=== PATIENT | male | born 1930 | race Caucasian/White ===

== ENCOUNTER 2019-04-11 10:53 | Observation (INO) | payer MEDICARE, BC ==
[2019-04-11 11:20] LABS: #Eosinphils 0.2 thou/uL (0.0-0.7); #Monocytes 0.4 thou/uL (0.11-0.59); #Neutrophils 4.1 thou/uL (1.40-6.50); %Basophils 0.3 % (0.0-1.0); %Eosinophils 3.6 % (0.0-10.0); %Lymphocytes 17.8 % (21.0-51.0); %Monocytes 6.7 % (0.0-10.0); %Neutrophils 71.7 % (42.0-75.0); Hemoglobin 14.9 g/dL (14.0-18.0); Mean Corpuscular HGB CONC 34.7 g/dL (32.0-36.0); Mean Corpuscular Hemoglobin 30.5 pg (27.0-31.0); Mean Corpuscular Volume 87.7 fL (78.0-98.0); Mean Platelet Volume 7.4 fL (7.4-10.4); Platelet Count 185 thou/uL (130-400); RBC Distribution Width 12.3 % (11.5-14.5); Red Blood Cell (RBC) Count 4.88 mill/uL (4.70-6.10); White Blood Cell (WBC) Count 5.7 thou/uL (4.8-10.8)
--- NOTE | 2019-04-11 11:48 | RAD ---
EXAM: Chest PA and lateral: HISTORY: Pain. COMPARISON: 03/16/2007 FINDINGS: Heart: Normal cardiac silhouette Aorta: Unremarkable Pulmonary vessels: Normal Costophrenic angles: Costophrenic angles are clear. Lungs: No consolidation or masses. Pneumothorax: No pneumothorax Osseous structures: No osseous abnormalities IMPRESSION: No acute cardiopulmonary process.
[2019-04-11 11:51] LABS: ALT (SGPT) 12 U/L (8-55); AST (SGOT) 15 U/L (5-34); Albumin 3.8 g/dL (3.4-4.8); Alkaline Phosphatase 75 U/L (40-150); Anion Gap 12 mmol/L (10-20); BUN (Urea Nitrogen) 16 mg/dL (8.4-25.7); Bilirubin, Total 0.6 mg/dL (0.2-1.2); CK (CPK) 60 U/L (30-200); Calc. Creatinine Clearance 0 mL/min (70-130); Calcium 9.1 mg/dL (7.8-10.44); Carbon Dioxide 25 mmol/L (23-31); Chloride 106 mmol/L (98-107); Estimated GFR-MDRD 82; Globulin 2.3 g/dL (2.4-3.5); Glucose 102 mg/dL (83-110); Potassium 4.1 mmol/L (3.5-5.1); Protein, Total 6.1 g/dL (5.8-8.1); Sodium 139 mmol/L (136-145)
[2019-04-11 11:52] LABS: CKMB 1.3 ng/mL (0-6.6)
[2019-04-11] MEDS ORDERED: Acetaminophen 325 MG TAB PO PRN (14:37)
[2019-04-11 14:42] VITALS: BMI 24.6
[2019-04-11 16:01] LABS: Troponin I Less than 0.010 ng/mL (< 0.028)
[2019-04-11] MEDS ORDERED: Calcium Carbonate 500 MG ChewTAB PO PRN (16:37)
[2019-04-11] MEDS ORDERED: Ondansetron ODT 4 MG TAB PO PRN (16:37)
[2019-04-11 18:26] LABS: Troponin I 0.013 ng/mL (< 0.028)
--- NOTE | 2019-04-11 22:53 | HP ---
PRIMARY CARE PHYSICIAN: Dr. Liu at the [facility] and [facility] in [place]. CHIEF COMPLAINT: Generalized weakness and left shoulder pain. HISTORY OF PRESENT ILLNESS: Mr. Ireland is a pleasant 88-year-old male with no past medical history, who had presented to [facility] earlier today after he experienced generalized weakness, nausea with no vomiting and left shoulder pain for a few moments earlier this morning while getting ready for episcopal. He states that he had gone to the bathroom and when he was making his way back to the bedroom, he states that the symptoms started, he states that he had sat down in a chair and the symptoms slowly resolved. He states that this has never happened in the past, however this shoulder pain felt like a muscle spasm. He states after he had sat down, the generalized weakness and his pain resolved, however, the nausea did remain for several minutes after, however he has not thrown up at that time. He had denied any fever or chills. Denied any chest pain, shortness of breath, or abdominal pain. He was taken to the ER for further workup, which his EKG showed normal sinus rhythm with a rate of 67. Blood pressure and other vital signs remained stable. However, blood pressure did show some elevations in the 170s/80s. However, the patient remained asymptomatic at that time. He had undergone a chest x-ray which revealed no acute cardiopulmonary process. His labs remained unremarkable including a troponin of less than 0.010 x2. He had denied any cough or any further symptoms since this morning. It was determined at that time the patient to be brought in under observation and to be monitored overnight for his symptoms from this morning. REVIEW OF SYSTEMS: All other systems reviewed and found to be negative unless mentioned in the HPI. PAST MEDICAL HISTORY: None. PAST SURGICAL HISTORY: Back surgery, cholecystectomy, right shoulder and right elbow surgery. PSYCHIATRIC HISTORY: None. SOCIAL HISTORY: The patient denies any alcohol, tobacco, or illicit drug use. KNOWN ALLERGIES: No known drug allergies. CURRENT HOME MEDICATIONS: None. PHYSICAL EXAMINATION: VITAL SIGNS: Blood pressure 135/67, pulse 59, respirations 12, temperature 98.0 degrees Fahrenheit, O2 saturations 95% on room air. GENERAL: The patient is awake, alert, and oriented x3. He is currently sitting up in bed with his at bedside and he appears to be in no acute distress at this time. HEENT: Atraumatic, normocephalic. Pupils are round and reactive to light. Extraocular muscles intact. Moist mucous membranes noted. NECK: Soft. Supple. No JVD. Trachea midline. CARDIOVASCULAR: Positive S1 and S2. Regular rate and rhythm. No murmur auscultated. RESPIRATORY: Clear to auscultation bilaterally. No wheezes, rales, or rhonchi. ABDOMEN: Soft, nontender. Bowel sounds present. MUSCULOSKELETAL: Strength 5+ bilaterally in upper and lower extremities. Moves all extremities equal. Full range of motion in the left shoulder with no pain noted. No edema noted. NEUROLOGIC: Cranial nerves 2 through 12 grossly intact. No focal deficits noted. SKIN: Warm, dry, and intact. No rashes. No ulceration noted. PSYCHIATRIC: Good mood and affect. LABORATORY DATA: WBC 5.7, RBC 4.88, hemoglobin 14.9, platelets 185. Sodium 139, potassium 4.1, anion gap 12, BUN 16, creatinine 0.88, estimated GFR 82, glucose 102, CK-MB 1.3, troponin less than 0.010 x2. DIAGNOSTIC IMAGING: PA and lateral chest x-ray reveals no acute cardiopulmonary process. ASSESSMENT AND PLAN: 1. Based on the patient's history, he had likely suffered a possible presyncopal episode. Therefore, he will be placed on telemetry and observed overnight. He will be started on a baby aspirin daily. TSH and lipid panel will be checked. So far, labs are currently unremarkable and vital signs are stable. He states he takes no home medications at this time. Troponins negative x2, and we will await the 3rd. We will check an echocardiogram for thoroughness and we will leave it up to the morning team to order any further testing at that time. 2. Left shoulder pain. Per patient, he states that this was more like a muscle spasm. However, this had spontaneously resolved. Currently, the patient is asymptomatic at this time. He will be placed on Tylenol as needed for his pain and he will be monitored closely overnight. 3. Deep venous thrombosis and gastrointestinal prophylaxis. 4. Code status, DNAR. 5. Surrogate decision maker is the patient's , Pat. DISPOSITION: The patient will be monitored on telemetry under observation overnight. Troponins will be trended and an echocardiogram will be ordered, but he will likely be discharged home tomorrow. Job ID: [id number]
[2019-04-12 05:48] LABS: #Eosinphils 0.5 thou/uL (0.0-0.7); #Lymphocytes 1.5 thou/uL (1.20-3.40); #Monocytes 0.5 thou/uL (0.11-0.59); #Neutrophils 3.2 thou/uL (1.40-6.50); %Basophils 0.8 % (0.0-1.0); %Eosinophils 8.4 % (0.0-10.0); %Lymphocytes 26.1 % (21.0-51.0); %Monocytes 8.8 % (0.0-10.0); %Neutrophils 55.9 % (42.0-75.0); Hemoglobin 14.6 g/dL (14.0-18.0); Mean Corpuscular HGB CONC 32.5 g/dL (32.0-36.0); Mean Corpuscular Hemoglobin 28.9 pg (27.0-31.0); Mean Corpuscular Volume 88.7 fL (78.0-98.0); Mean Platelet Volume 7.4 fL (7.4-10.4); Platelet Count 181 thou/uL (130-400); RBC Distribution Width 12.4 % (11.5-14.5); Red Blood Cell (RBC) Count 5.05 mill/uL (4.70-6.10); White Blood Cell (WBC) Count 5.7 thou/uL (4.8-10.8)
[2019-04-12 06:11] LABS: Anion Gap 7 mmol/L (10-20); BUN (Urea Nitrogen) 13 mg/dL (8.4-25.7); Calc. Creatinine Clearance 62 mL/min (70-130); Calcium 8.9 mg/dL (7.8-10.44); Carbon Dioxide 29 mmol/L (23-31); Chloride 107 mmol/L (98-107); Estimated GFR-MDRD 84; Glucose 93 mg/dL (83-110); Sodium 139 mmol/L (136-145)
[2019-04-12] MEDS ORDERED: Aspirin 325 MG TAB PO SCH (09:00)
[2019-04-12 15:58] VITALS: BP 146/70; TEMP 98.3
--- NOTE | 2019-04-13 04:26 | DIS ---
DATE OF ADMISSION: 04/11/2019 DATE OF DISCHARGE: 04/12/2019 CHIEF COMPLAINT ON ADMISSION: 1. Left axilla and shoulder pain with associated generalized weakness. DISCHARGE DIAGNOSES: 1. Left axilla pain with associated nausea, acute coronary syndrome ruled out, questionably secondary to musculoskeletal/muscle spasm. 2. Borderline hypertension. BRIEF HOSPITAL COURSE: The patient is a very pleasant, 88-year-old male with no past medical history and who takes no home medications, who presented to the hospital after suffering from acute onset of what he describes as left shoulder pain, although points to his left axilla area. The pain came on while he was getting ready for quaker. It did not radiate. He had no chest pain or shortness of breath. He did have some associated nausea, which caused him to sit down. His symptoms resolved on their own. They were nonexertional. The patient's brought him to the hospital for further workup and treatment. He was admitted for ACS rule out. His serial troponin were negative x3. Chest x-ray was negative for any acute cardiopulmonary process. His blood work was largely remarkable. His echocardiogram showed normal left ventricular systolic function and grade 1 diastolic dysfunction. His symptoms have completely resolved. He has ambulated the halls with PT without any issue or recurrence of his pain. He has had no chest pain or shortness of breath. He has had no further nausea. CONDITION AT DISCHARGE: Stable. DISCHARGE DISPOSITION: Home. DISCHARGE INSTRUCTIONS/FOLLOW UP: The patient has been counseled on his blood pressure readings which are borderline at this time. He will obtain a blood pressure cuff and begin monitoring his blood pressure at home. He will follow up within the next week with his [facility] doctor, Dr. Jefferson in [place]. Apparently just under a year ago, the patient did have an extensive workup at the [facility], and the patient's does believe he had a stress test at that time. Repeat stress test may be deemed appropriate if the patient's symptoms return. There was no evidence that his pain was cardiac in nature at this time, and he will be discharged home in good condition. The care of this patient has been discussed with Dr. Aguillon who agrees with discharge as outlined above. Job ID: [id number] [facility]
== END 2019-04-12 17:31 | disposition home or self-care (01) ==
LOC: ERS 10:53 → 2SW 13:15
PROVIDERS: ADMIT Internal Medicine; ATTEND Internal Medicine
DX: M62.838 Other muscle spasm (principal); R03.0 Elevated blood-pressure reading, without diagnosis of hypertension; R11.0 Nausea; Z98.890 Other specified postprocedural states
CPT/HCPCS: 71046; 80048; 80053; 82550; 82553; 84484 ×2; 85025 ×2; 93005; 93306; 94760; 97139; 99285; G0378 ×2; 36415

== ENCOUNTER 2019-11-21 09:02 | Emergency (ER) | payer MEDICARE, BC ==
[2019-11-21] MEDS ORDERED: HYDROcodone/Acetaminophen 5/325 mg Tablet ONE (09:24)
--- NOTE | 2019-11-21 09:39 | RAD ---
Exam:2 views right hip HISTORY: Pain COMPARISON: None FINDINGS: Contour of the femoral head is maintained. Preserved hip joint space. No fracture. IMPRESSION: No fracture.
--- NOTE | 2019-11-21 10:44 | CT ---
CT PELVIS WITHOUT CONTRAST: HISTORY: Pain. Fall. COMPARISON: None. FINDINGS: Transversely oriented acetabular fracture extending to the anterior wall. The femoral head and neck a re intact. The obturator rings are intact. Chronic adductor enthesopathy. No SI joint widening. Small right pelvic sidewall hematoma. Moderate prostate calcifications. IMPRESSION: Nondisplaced, transversely oriented right acetabular fracture with small right pelvic sidewall hemato ma. Fracture does extend to the anterior wall. POS: OFF
== END 2019-11-21 11:31 | disposition home or self-care (01) ==
LOC: ERS 09:02
DX: S32.454A Nondisplaced transverse fracture of right acetabulum, initial encounter for closed fracture (principal); W19.XXXA Unspecified fall, initial encounter
CPT/HCPCS: 72192

== ENCOUNTER 2020-05-24 04:17 | Emergency (ER) | payer MEDICARE, BC ==
[2020-05-24] MEDS ORDERED: Ondansetron PF 4 MG/2 ML Vial ONE (05:47)
[2020-05-24] MEDS ORDERED: Morphine 4 MG/ML VIAL ONE (05:47)
--- NOTE | 2020-05-24 07:50 | RAD ---
EXAM: 2 views of the left shoulder HISTORY: Shoulder pain after fall COMPARISON: None FINDINGS: There is a questionable fracture of the greater tuberosity of the humerus. Moderate glenohu meral degenerative changes are seen.. The visualized thorax is unremarkable. IMPRESSION: Questionable greater tuberosity fracture of the humerus
--- NOTE | 2020-05-24 08:31 | CT ---
PRELIMINARY REPORT/[facility]/EMERGENCY AFTER HOURS PROCEDURE: EXAM: CT Head Without Intravenous Contrast. CLINICAL HISTORY: Pt is s/p fall this am. -LOC TECHNIQUE: Axial computed tomography images of the head/brain without intravenous contrast. COMPARISON: None provided. FINDINGS: BRAIN: There is cerebral atrophy. There is no intracranial hemorrhage. Periventricular hypodensities are pre sent secondary to small vessel ischemic disease. VENTRICLES: No hydrocephalus. ORBITS: The orbits are unremarkable. SINUSES AND MASTOIDS: The paranasal sinuses and mastoid air cells are clear. SOFT TISSUES: No significant facial or scalp soft tissue swelling evident. No radiopaque foreign body is seen. BONES: No acute skull fracture. IMPRESSION: No acute intracranial abnormality. ELECTRONICALLY SIGNED BY: Yolanda Butler MD May 24, 2020 5:07:13 AM CDT This report is intended for review by the ordering physician only, in accordance of law. If you recei ve this report in error, please call [facility] at [phone]. FINAL REPORT EMERGENCY AFTER HOURS CT BRAIN WITHOUT CONTRAST: FINDINGS/IMPRESSION: I agree with the findings and impression given in the preliminary report per [facility] physici an. No evidence of acute intracranial abnormality. POS: VALERIY
== END 2020-05-24 06:50 | disposition home or self-care (01) ==
LOC: ERS 04:17
DX: S42.202A Unspecified fracture of upper end of left humerus, initial encounter for closed fracture (principal); K21.9 Gastro-esophageal reflux disease without esophagitis; Z79.899 Other long term (current) drug therapy; W18.30XA Fall on same level, unspecified, initial encounter; Y92.002 Bathroom of unspecified non-institutional (private) residence as the place of occurrence of the external cause
CPT/HCPCS: 70450; 96374; 96375; J2270; J2405

== ENCOUNTER 2020-07-17 10:04 | Inpatient (IN) | payer MEDICARE, BC ==
--- NOTE | 2020-07-17 10:58 | RAD ---
XR Chest 1 View HISTORY: Preoperative evaluation, right hip fracture COMPARISON: 04/11/2019 FINDINGS: The heart size is normal. The lungs are well expanded without focal areas of consolidation, pneumothorax or pleural effusions. IMPRESSION: No radiographic evidence of acute cardiopulmonary process.
--- NOTE | 2020-07-17 11:01 | RAD ---
PELVIS 1 VIEW: HISTORY: Fall with hip pain. COMPARISON: None. FINDINGS: Obliquely oriented mid cervical femoral neck fracture with varus angulation and impaction. The obtur ator rings are intact. Left femoral head and neck are intact. IMPRESSION: Obliquely oriented right midcervical femoral neck fracture with varus angulation and impaction. POS: HOME
--- NOTE | 2020-07-17 11:01 | CT ---
CT BRAIN WITHOUT CONTRAST: HISTORY:Fall from ground level. Altered mental status COMPARISON:05/24/2020 FINDINGS: There are foci of decreased attenuation in the periventricular white matter, consistent with chronic small vessel ischemic disease. Changes of cortical atrophy are again seen. No evidence of acute infarct, hemorrhage, midline shift or abnormal extra-axial fluid collections is seen. The ventricular size is appropriate and the basilar cisterns are patent. The bony calvarium is intact. The visualized paranasal sinuses and mastoid air cells are well aerated. IMPRESSION: No CT evidence of acute intracranial process.
--- NOTE | 2020-07-17 11:02 | RAD ---
RIGHT FEMUR 2 VIEWS: HISTORY: Fracture. Pain. COMPARISON: None. FINDINGS: There is a right mid cervical obliquely oriented femoral neck fracture with mild varus angulation and impaction. The remainder of the femur is intact. Moderate degenerative changes of the medial cecilia rtment of the knee. IMPRESSION: Obliquely oriented midcervical femoral neck fracture. POS: HOME
--- NOTE | 2020-07-17 11:14 | CT ---
CT CERVICAL SPINE WITH CORONAL AND SAGITTAL REFORMATIONS AND NO IV CONTRAST: HISTORY: Fall, neck pain FINDINGS: Multilevel degenerative changes are present. No fracture, subluxation or facet malalignment is identified. No prevertebral soft tissue swelling is apparent. The visualized lung apices are unremarkable. IMPRESSION: No CT evidence for fracture or traumatic subluxation.
[2020-07-17 12:00] LABS: Mean Corpuscular HGB CONC 34.2 g/dL (32.0-36.0); Mean Corpuscular Hemoglobin 29.7 pg (27.0-31.0); Mean Corpuscular Volume 86.9 fL (78.0-98.0); Mean Platelet Volume 7.8 fL (7.4-10.4); Platelet Count 170 thou/uL (130-400); RBC Distribution Width 12.4 % (11.5-14.5); Red Blood Cell (RBC) Count 5.04 mill/uL (4.70-6.10); White Blood Cell (WBC) Count 8.3 thou/uL (4.8-10.8)
[2020-07-17 12:16] LABS: Eosinophils 1 % (0-10); Lymphocytes 11 % (21-51); MDiff Complete? YES; Monocytes 8 % (0-10); Neutrophil 79 % (42-75); Platelet Morphology Comment Appears Adequate; Reactive Lymphocytes 1 % (0-10)
[2020-07-17 12:19] LABS: ALT (SGPT) 12 U/L (8-55); AST (SGOT) 15 U/L (5-34); Albumin 3.8 g/dL (3.4-4.8); Alkaline Phosphatase 113 U/L (40-110); Anion Gap 15 mmol/L (10-20); BUN (Urea Nitrogen) 14 mg/dL (8.4-25.7); Bilirubin, Total 0.7 mg/dL (0.2-1.2); Calc. Creatinine Clearance 0 mL/min (70-130); Carbon Dioxide 23 mmol/L (23-31); Chloride 104 mmol/L (98-107); Estimated GFR-MDRD 74; Globulin 2.7 g/dL (2.4-3.5); Glucose 130 mg/dL (83-110); Potassium 3.9 mmol/L (3.5-5.1); Protein, Total 6.5 g/dL (5.8-8.1); Sodium 138 mmol/L (136-145)
[2020-07-17] MEDS ORDERED: Morphine 2 MG/ML VIAL SLOW IVP PRN (14:27)
[2020-07-17] MEDS ORDERED: Ondansetron ODT 4 MG TAB PO PRN (14:27)
[2020-07-17] MEDS ORDERED: Ondansetron PF 4 MG/2 ML Vial IVP PRN (14:27)
[2020-07-17] MEDS ORDERED: Dextrose 5% in Water 1,000 ML IV PRN (14:27)
[2020-07-17] MEDS ORDERED: Dextrose 50% Abboject 50 ML SYRINGE SLOW IVP PRN (14:27)
[2020-07-17] MEDS ORDERED: hydrALAZINE 20 MG/ML VIAL SLOW IVP PRN (14:27)
[2020-07-17] MEDS ORDERED: traMADol HCl 50 MG TAB PO PRN (14:32)
[2020-07-17] MEDS ORDERED: Cyclobenzaprine 10 MG TAB PO PRN (14:32)
[2020-07-17 14:41] LABS: Magnesium 1.9 mg/dL (1.6-2.6); Phosphorus 3.1 mg/dL (2.3-4.7)
[2020-07-17 14:46] LABS: SARS-CoV-2 NAA Rapid Test Not Detected (NotDetected)
[2020-07-17] MEDS ORDERED: TETANUS AND DIPHTHERIA TOX/PF 0.5 ML DISP.SYRIN IM ONE (15:00)
--- NOTE | 2020-07-17 15:28 | HP ---
ATTENDING PHYSICIAN: Dr. Méndez. REQUESTING PHYSICIAN: Dr. Felton, the ER physician. CONSULTS: Orthopedic Surgery, Dr. Ray. CHIEF COMPLAINT: Ground level fall, right hip, and knee pain. HISTORY OF PRESENT ILLNESS: This is an 89-year-old gentleman with no significant past medical history, who presented to the emergency room after a ground level fall at his home. The patient was helping his put lotion on when he lost his balance, landing on his right side. The patient denies losing consciousness or hitting his head. The patient does have an abrasion to the right chin area. The patient is hard of hearing. The patient denies having any chest pain, shortness of breath, or dizziness before losing his balance. The patient does report he loses his balance frequently. The patient does use a cane to ambulate. The patient was found to have a right femoral neck fracture and Trauma Services was asked to admit the patient for medical management. The patient was given 225 mcg of fentanyl by EMS prior to arrival. REVIEW OF SYSTEMS: A 10-point review of systems is negative unless otherwise indicated in the above HPI. PAST MEDICAL HISTORY: Denies. PAST SURGICAL HISTORY: Back surgery, cholecystectomy, right shoulder, and right elbow surgery. ALLERGIES: NO KNOWN DRUG ALLERGIES. MEDICATIONS: Tylenol before bed. SOCIAL HISTORY: Denies smoking history. Occasional alcohol use. No illicit drug use. PHYSICAL EXAMINATION: VITAL SIGNS: Blood pressure 181/91, pulse 94, respirations 18, SpO2 of 100% on room air, temperature 97.6. GENERAL: Awake, alert, hard of hearing, oriented to person and place only. Moderate distress due to right hip pain. HEENT: Head is normocephalic, abrasion to right chin. Pupils are equal, round, and reactive. Mucous membranes are slightly dry. Trachea is midline, normal range of motion of neck, no cervical spine tenderness. CARDIOVASCULAR: Regular rate, regular rhythm, no murmur. RESPIRATORY: Clear bilateral, no wheezing, rales, or rhonchi. ABDOMEN: Soft, nontender, nondistended. EXTREMITIES: Moves all extremities. Strength 5/5, neurovascularly intact x4. Right lower extremity is externally rotated. Right hip tender to palpation. NEUROLOGIC: No focal deficits. SKIN: Warm, dry, and intact. LABORATORY DATA: WBC 8.3, RBC 5.04, hemoglobin 15.0, hematocrit 43.8, platelets 170. Sodium 138, potassium 3.9, chloride 104, carbon dioxide 23, BUN 14, creatinine 0.96, estimated GFR 74, glucose 130, calcium 9.0, phosphorus 3.1, magnesium 1.9. AST 15, ALT 12, alkaline phos 113, albumin 3.8. DIAGNOSTICS: Chest x-ray, impression, no evidence of acute cardiopulmonary process. Pelvis x-ray, impression, obliquely oriented right mid cervical femoral neck fracture with varus angulation and impaction. Brain CT, impression, no evidence of acute intracranial process. Cervical spine CT, impression, no evidence of fracture or traumatic subluxation. Right femur x-ray, impression, obliquely oriented mid cervical femoral neck fracture. IMPRESSION: 1. Ground level fall. 2. Right femoral neck fracture. 3. Acute traumatic pain. PLAN: Admit to the surgical floor. N.p.o. after midnight. Orthopedic Surgery plans to take the patient to the OR in the morning for repair. Maintenance fluids overnight, normal saline at 120 an hour. The patient can have regular diet before midnight. We will confirm the patient's home medications. Pain control. Bedrest until repair. Physical and Occupational Therapy to evaluate and treat postop. The patient will most likely need inpatient rehab postop. The plan will be discussed with the attending after this dictation. Job ID: [id number]
[2020-07-17 17:21] VITALS: BMI 22.9
[2020-07-17] MEDS: traMADol HCl 50 MG TAB PO SCH ×2 (18:21→20:10)
[2020-07-17] MEDS: Acetaminophen 500 MG TAB PO SCH ×2 (18:21→20:11)
[2020-07-17] MEDS: Ketorolac Tromethamine 30 MG/ML VIAL IVP SCH ×2 (18:22→23:26)
[2020-07-17] MEDS: Famotidine 20 MG TAB PO SCH (20:10)
[2020-07-17] MEDS: Sodium Chloride 0.9% 1,000 ML IV SCH (20:12)
[2020-07-18] MEDS: Acetaminophen 500 MG TAB PO SCH ×4 (04:22→20:39)
[2020-07-18] MEDS: traMADol HCl 50 MG TAB PO SCH ×4 (04:22→20:38)
[2020-07-18] MEDS: Sodium Chloride 0.9% 1,000 ML IV SCH ×3 (04:44→18:05)
[2020-07-18] MEDS: Ketorolac Tromethamine 30 MG/ML VIAL IVP SCH ×4 (04:45→23:19)
[2020-07-18 05:17] LABS: Hemoglobin 13.5 g/dL (14.0-18.0); Mean Corpuscular HGB CONC 33.6 g/dL (32.0-36.0); Mean Corpuscular Hemoglobin 29.1 pg (27.0-31.0); Mean Corpuscular Volume 86.7 fL (78.0-98.0); Mean Platelet Volume 7.8 fL (7.4-10.4); Platelet Count 166 thou/uL (130-400); RBC Distribution Width 12.5 % (11.5-14.5); Red Blood Cell (RBC) Count 4.62 mill/uL (4.70-6.10); White Blood Cell (WBC) Count 6.3 thou/uL (4.8-10.8)
[2020-07-18 05:43] LABS: Anion Gap 12 mmol/L (10-20); BUN (Urea Nitrogen) 17 mg/dL (8.4-25.7); Calc. Creatinine Clearance 62 mL/min (70-130); Calcium 8.5 mg/dL (7.8-10.44); Carbon Dioxide 24 mmol/L (23-31); Chloride 105 mmol/L (98-107); Estimated GFR-MDRD 86; Glucose 97 mg/dL (83-110); Magnesium 1.9 mg/dL (1.6-2.6); Potassium 3.5 mmol/L (3.5-5.1); Sodium 137 mmol/L (136-145)
[2020-07-18 05:44] LABS: Phosphorus 2.8 mg/dL (2.3-4.7)
[2020-07-18] MEDS ORDERED: Potassium Phosphate 30 MMOL, Magnesium Sulfate 2 GM in Sodium Chloride 0.9% 250 ML 250 ML IVPB SCH (08:30)
--- NOTE | 2020-07-18 08:33 | CON ---
DATE OF CONSULTATION: 07/17/2020 HISTORY OF PRESENT ILLNESS: Mr. Ireland is a pleasant 89-year-old male, status post ground level fall sustaining right hip fracture. The patient is resting comfortably in bed. The patient's , Jayde, had discussion on the phone. The patient's medical condition is otherwise comfortable, pain controlled. PAST MEDICAL HISTORY: Reflux, BPH, and bilateral lower extremity swelling. PAST SURGICAL HISTORY: Right shoulder and elbow surgery, a back surgery unspecified, history of two lumbar spine surgeries NOS cholecystectomy. MEDICATIONS: 1. Lasix. 2. Pantoprazole. 3. Tamsulosin. ALLERGIES: NO KNOWN DRUG ALLERGIES. SOCIAL HISTORY: The patient has history of smokeless tobacco use. No history of smoking. Denies alcohol use. Sabianist. 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 REVIEW OF SYSTEMS: Negative for 10-point except as above and positive for hearing loss. PHYSICAL EXAMINATION: GENERAL: Alert and oriented male, in no acute distress, resting comfortably in bed. EXTREMITIES: Right lower extremity, externally rotated and shortened. Neurovascularly intact distally. Palpable pulses. He will plantarflex and dorsiflex his toes. LABORATORY DATA: H and H of 15 and 43. Creatinine 0.96. The patient's glucose is 130. Otherwise, right femur and pelvis x-ray show a vertical shear basicervical femoral neck fracture, which exits near the patient's lesser trochanter. IMPRESSION: Right basicervical femoral neck fracture. ASSESSMENT AND PLAN: The patient will be made n.p.o. at midnight, be admitted to Trauma. The patient will be on-call to the OR tomorrow. Plan will be for a cemented hemiarthroplasty. I feel the vertical nature of his neck fracture either a valgus high angle DHS could be performed versus hemiarthroplasty. I feel like hemiarthroplasty has more consistency. I am concerned about his ability to heal at the angle and position of this and likely may fail. The patient made n.p.o., received preoperative antibiotics. I discussed with the patient and his the risks and benefits of surgery, pain, scar, bleeding, infection, damage to vital structures, decreased range of motion, strength, fracture below the stem, blood clots, loss of life or limb. The patient and family understand the risks. I discussed with his the mortality associated with this fracture. The patient understands this and elects to proceed. The patient will be taken to the operative suite tomorrow. Job ID: [id number] MTDD
[2020-07-18] MEDS ORDERED: Lidocaine 1% PF 5 ML VIAL ONE (09:00)
[2020-07-18] MEDS ORDERED: Glycopyrrolate 0.2 MG/ML 5 ML SYRINGE ONE (09:00)
[2020-07-18] MEDS ORDERED: PROPOFOL 200 MG/20 ML VIAL ONE (09:00)
[2020-07-18] MEDS ORDERED: PHENYLEPHRINE-NS 100 MCG/ML 10 ML SYRINGE ONE (09:00)
[2020-07-18] MEDS ORDERED: Ondansetron PF 4 MG/2 ML Vial ONE (09:00)
[2020-07-18] MEDS ORDERED: Rocuronium Bromide 10 MG/ML (10ML VIAL) ONE (09:00)
--- NOTE | 2020-07-18 09:10 | RAD ---
EXAM: 2 views of the right hip HISTORY: Right hip fracture COMPARISON: Pelvic x-ray 07/17/2020 FINDINGS: 2 views of the right hip shows a fracture of the right femoral neck. No dislocation of the femoral head is seen. No significant degenerative changes are seen. No soft tissue swelling is present. IMPRESSION: Right femoral neck fracture
[2020-07-18] MEDS ORDERED: Fentanyl 100 MCG/2 ML VIAL ONE (11:16)
[2020-07-18] MEDS ORDERED: Lidocaine 2% Jelly 5 ML TUBE ONE (11:17)
[2020-07-18] MEDS ORDERED: Phenylephrine 10 MG/ML VIAL ONE (11:17)
[2020-07-18] MEDS ORDERED: CEFAZOLIN 2 GM in Premix Bag 1 BAG IVPB SCH (11:30)
[2020-07-18] MEDS: Polyethylene Glycol 3350 17 GM Packet PO SCH (11:41)
[2020-07-18] MEDS: Famotidine 20 MG TAB PO SCH (11:41)
[2020-07-18] MEDS: Tamsulosin HCl 0.4 MG CAP PO SCH (11:42)
[2020-07-18] MEDS ORDERED: Tranexamic Acid 1,000 MG/10 ML VIAL ONE (12:03)
[2020-07-18] MEDS ORDERED: Sodium Chloride 0.9% 100 ML ONE (12:03)
--- NOTE | 2020-07-18 12:46 | PRG ---
DATE OF SERVICE: 07/18/2020 SUBJECTIVE: The patient remains on the surgical floor. The patient is status post right femoral neck fracture on 07/17/2020. The patient is scheduled to go to the operating room later this morning with Orthopedic Surgery for anticipated ORIF repair of the fracture. The patient is currently resting comfortably with good pain control. The patient has been n.p.o. since midnight in preparation for surgery. The patient will have Physical and Occupational Therapy planned to come postoperatively for evaluation. The patient voices no complaints at this time. OBJECTIVE: VITAL SIGNS: Temperature 97.9 Fahrenheit, pulse 75, respirations 18, SpO2 of 92% on room air, and blood pressure 156/75. GENERAL: A well-appearing male, resting comfortably, oriented to person and place only. HEENT: Head, normocephalic, abrasion to right chin. EOMI. Moist mucous membranes. CARDIOVASCULAR: Regular rate, regular rhythm. RESPIRATORY: Even respirations, nonlabored, no respiratory distress. Clear breath sounds bilaterally. ABDOMEN: Soft, nontender, and nondistended. EXTREMITIES: Moves all extremities, neurovascularly intact. Right lower extremity is externally rotated. Right hip is tender to palpation. NEUROLOGIC: No focal deficits. GCS 15. SKIN: Warm, dry, and intact. LABORATORY DATA: WBC 6.3, RBC 4.62, hemoglobin 13.5, hematocrit 40.1, and platelets 166. Sodium 137, potassium 3.5, chloride 105, carbon dioxide 24, BUN 17, creatinine 0.84, estimated GFR 86, glucose 97, and calcium 8.5. Phosphorus 2.8. Magnesium 1.9. DIAGNOSTIC STUDIES: Hip x-ray this morning shows a fracture of the right femoral neck. No dislocation of the femoral head is seen. No significant degenerative changes are seen. No soft tissue swelling is present. ASSESSMENT: 1. Status post ground-level fall. 2. Right femoral neck fracture. 3. Acute traumatic pain, well controlled. PLAN: Orthopedic Surgery plans to take the patient to the OR this morning for repair of right femoral neck fracture. Continue maintenance fluids of normal saline at 120 an hour. The patient can have regular diet postoperatively. Continue pain control. Physical and Occupational Therapy to evaluate and treat the patient postoperatively, anticipate the patient will likely need inpatient rehab placement. This patient was seen and evaluated by Dr. Clay with plan above discussed. Job ID: [id number]
[2020-07-18] MEDS ORDERED: Ondansetron HCl/PF 4 MG/2 ML Vial IVP PRN (14:29)
--- NOTE | 2020-07-18 15:05 | RAD ---
Right hip one view HISTORY: Fracture. FINDINGS: Metallic prosthesis in place. No eufemia-hardware lucency on this single view. Soft tissue gas from recent surgery. IMPRESSION : Right hip prosthesis radiographic position.
--- NOTE | 2020-07-18 15:11 | RAD ---
AP PELVIS: Date: 07/18/2020 HISTORY: Right femoral neck fracture. FINDINGS/IMPRESSION: Interval placement of a right femoral head prosthesis is seen in good position and alignment since th e previous day's exam. POS: OFF
--- NOTE | 2020-07-18 16:15 | EKG ---
Test Reason : Blood Pressure : / mmHG Vent. Rate : 072 BPM Atrial Rate : 072 BPM P-R Int : 140 ms QRS Dur : 098 ms QT Int : 404 ms P-R-T Axes : 024 -30 069 degrees QTc Int : 442 ms Sinus rhythm with occasional Premature ventricular complexes Left axis deviation Abnormal ECG Confirmed by ASHIA JACOME ([id number]), editor book JUAN WETZEL ([id number]) on 07/18/2020 4:14:36 PM Referred By: Confirmed By:ASHIA JACOME
[2020-07-18] MEDS: CEFAZOLIN 2 GM in Premix Bag 1 BAG IVPB SCH (20:38)
[2020-07-19] MEDS: CEFAZOLIN 2 GM in Premix Bag 1 BAG IVPB SCH (03:15)
[2020-07-19] MEDS: Acetaminophen 500 MG TAB PO SCH ×4 (03:16→20:16)
[2020-07-19] MEDS: traMADol HCl 50 MG TAB PO SCH ×4 (03:16→20:16)
[2020-07-19] MEDS: Ketorolac Tromethamine 30 MG/ML VIAL IVP SCH (05:07)
[2020-07-19 05:13] LABS: Mean Corpuscular HGB CONC 32.5 g/dL (32.0-36.0); Mean Corpuscular Hemoglobin 28.8 pg (27.0-31.0); Mean Corpuscular Volume 88.6 fL (78.0-98.0); Mean Platelet Volume 7.7 fL (7.4-10.4); Platelet Count 153 thou/uL (130-400); RBC Distribution Width 12.5 % (11.5-14.5); Red Blood Cell (RBC) Count 4.52 mill/uL (4.70-6.10); White Blood Cell (WBC) Count 7.8 thou/uL (4.8-10.8)
[2020-07-19 05:37] LABS: Anion Gap 13 mmol/L (10-20); BUN (Urea Nitrogen) 17 mg/dL (8.4-25.7); Calc. Creatinine Clearance 56 mL/min (70-130); Calcium 8.3 mg/dL (7.8-10.44); Carbon Dioxide 21 mmol/L (23-31); Chloride 106 mmol/L (98-107); Estimated GFR-MDRD 77; Glucose 130 mg/dL (83-110); Phosphorus 2.6 mg/dL (2.3-4.7); Sodium 136 mmol/L (136-145)
--- NOTE | 2020-07-19 07:21 | PRG ---
DATE OF SERVICE: 07/18/2020 SUBJECTIVE: The patient was seen this evening during rounds. He is postoperative day 0 after fixation of right femoral neck fracture. Upon my evaluation, he is resting comfortably in bed and asleep. No signs of acute distress. Nursing reported no acute events. OBJECTIVE: VITAL SIGNS: Temperature 98.7, pulse 92, respirations 16, oxygen saturation 93% on room air, and blood pressure 114/67. GENERAL: Well-appearing elderly male, sitting up in bed, asleep with no signs of acute distress. PULMONARY: Equal chest rise and fall. No signs of acute respiratory distress. ASSESSMENT: 1. Status post ground level fall. 2. Right femoral neck fracture, status post repair. 3. History of benign prostatic hyperplasia and gastroesophageal reflux disease. PLAN: Continue current regular diet. Discontinue IV fluids. Continue Dominguez for now, we will likely discontinue tomorrow. The patient to start working with Physical and Occupational Therapy tomorrow. Restarted his home Flomax and Protonix. We will hold off on Lasix for now. Repeat blood work in the morning. The patient will likely need placement at acute rehab facility. We will start that process tomorrow. Job ID: [id number]
[2020-07-19] MEDS ORDERED: Ibuprofen 600 MG TAB PO PRN (07:28)
[2020-07-19] MEDS ORDERED: Tamsulosin HCl 0.4 MG CAP PO SCH (09:00)
[2020-07-19] MEDS: Furosemide 40 MG TAB PO SCH (09:03)
[2020-07-19] MEDS: Tamsulosin HCl 0.4 MG CAP PO SCH (09:03)
[2020-07-19] MEDS: Aspirin 81 mg Enteric Coated Tablet PO SCH ×2 (09:03→20:16)
[2020-07-19] MEDS: Polyethylene Glycol 3350 17 GM Packet PO SCH (09:04)
--- NOTE | 2020-07-19 10:31 | OP ---
DATE OF PROCEDURE: 07/18/2020 PREOPERATIVE DIAGNOSIS: Right femoral neck fracture with posterior fracture line extending into calcar. POSTOPERATIVE DIAGNOSIS: Right hip complex femoral neck fracture with posterior wall of calcar fracture plane. PROCEDURE PERFORMED: Right hip hemiarthroplasty. DATE PITTER: Joo Forrest PA-C ANESTHESIOLOGIST: Hubert Hernandez MD ANESTHESIA: The patient received a general endotracheal intubation. ESTIMATED BLOOD LOSS: 100 mL. TOURNIQUET TIME: None. IMPLANTS: [place] size 5 Accolade C stem, a 12 mm distal spacer, 50 mm bipolar component, 28 mm -4 femoral head, and Simplex cement. ANTIBIOTICS: Ancef 2g TXA 1 g. COMPLICATIONS: None. HISTORY OF PRESENT ILLNESS: Mr. Ireland is an 89-year-old male, status post fall , a household ambulator. The patient presents with a right femoral neck fracture with a vertical shear component, split on the posterior wall. I discussed with the family risks and benefits of right cemented hemiarthroplasty to include pain, scar, bleeding, infection, damage to vital structures, need for further surgeries, failure of procedure, fracture below the stem, decreased range of motion and strength, loss of life or limb. The patient and family understand the risks and benefits of procedure and elected to proceed. DESCRIPTION OF PROCEDURE: A time-out was performed designating the patient's right lower extremity as the operative site based on site, consents, and marking. After time-out, the patient's right lower extremity was prepped and draped in a sterile fashion, placed in lateral position. After completion of time-out and receiving preoperative antibiotics, the patient had a lateral incision down through skin and IT band. Gluteus medius was taken down and minimus. The capsule was exposed, T' d the capsule, placing sutures and tied on anterior and posterior we made a napkin ring cut. The anterior aspect of the calcar was intact down to the lesser. At the level of the lesser, there was a posterior porus component of the calcar broken off down to the level of the lesser. I removed the head, sized to a 50. We then started broaching and broached up to a size 5, which we felt had a good fit and fill. We were at least 2 cortical diameters distal to our fracture line. We trialed #5, which was reduced and had overall good length with -4 head. We then washed out the cement, placed our cement plug, placed our cement down, and packed and rolled and placed into the canal. We passed our stem down, removed excess cement anterior and posterior. We used anterior calcar for our version as well as to rest the sleeve on, collar on. After removing all the implants, being happy with the position of the hip, we placed our final implants, reduced after we washed out the cup, reduced, closed the capsule, closed the medius and minimus with #2 Vicryl, closed with 2-0 Vicryl for the IT band, 0 and 2-0 for the skin and glue. My senior administrative assistant helped with retraction of the femur as well as closure of the wound and throughout the case with exposure of the patient's femur. The patient will be admitted postop, will be followed by Trauma, receive perioperative antibiotics, and will need long-term placement. Job ID: [id number] MTDD
[2020-07-19] MEDS ORDERED: Ibuprofen 600 MG TAB PO SCH (10:45)
--- NOTE | 2020-07-19 11:44 | PRG ---
DATE OF SERVICE: 07/18/2020 SUBJECTIVE: The patient remains on the surgical floor. The patient is status post right femoral neck fracture on July 17, 2020, and postoperative day #1 after ORIF repair of the right hip. The patient is currently working with physical therapy at bedside this morning. He reports that his pain in the right hip is a 10/10. The patient has been receiving scheduled tramadol for pain with some additional p.r.n. medications including Tylenol and Motrin; however, these have not been given as of yet. The patient's is at bedside, reports that the patient was very agitated overnight, continued to try to pull out his Dominguez catheter. OBJECTIVE: VITAL SIGNS: Temperature 98.0 Fahrenheit, pulse 67, respirations 16, SpO2 of 99% on room air, and blood pressure 154/64. GENERAL: Well-appearing male, standing at bedside, oriented to person and place, no acute distress. HEENT: Head is normocephalic, abrasion to right chin. EOMI. Moist mucous membranes. CARDIOVASCULAR: Regular rate, regular rhythm. RESPIRATORY: Even respirations, nonlabored, no respiratory distress. ABDOMEN: Soft, nontender, and nondistended. EXTREMITIES: Moves all extremities, neurovascularly intact. Right hip is tender to palpation. NEUROLOGIC: No focal deficits. GCS 15. SKIN: Warm, dry, and intact. LABORATORY DATA: Urine culture negative at 48 hours. WBC 7.8, RBC 4.52, hemoglobin 13.0, hematocrit 40.0, platelets 153. Sodium 136, potassium 4.0, chloride 106, carbon dioxide 21, BUN 17, creatinine 0.93, estimated GFR of 77, glucose 130, calcium 8.3, phosphorus 2.6, magnesium 2.0. DIAGNOSTIC STUDIES: Hip and pelvis x-ray demonstrates interval placement of a right femoral head prosthesis in good position and alignment. ASSESSMENT: 1. Status post ground level fall. 2. Right femoral neck fracture, status post repair, postoperative day #1. 3. Acute traumatic pain, poor control. 4. History of benign prostatic hyperplasia, gastroesophageal reflux disease. PLAN: Continue current regular diet. Adjust pain control to have tramadol scheduled, Motrin scheduled, and Tylenol scheduled. Continue to encourage the patient to work with Physical and Occupational Therapy. Home medications of Flomax and Protonix restarted. Continue to hold Lasix for now. Post-acute screen placed with anticipation that the patient will need placement at a rehab facility. Wound care consult placed today for sacral decubitus wound. Dominguez catheter discontinued. This patient was seen and evaluated by Dr. Clay with plan above discussed. Job ID: [id number]
[2020-07-19] MEDS: Ibuprofen 200 MG TAB PO SCH ×2 (11:59→18:40)
--- NOTE | 2020-07-19 12:45 | PDOC.GSPN ---
Surgery Progress Note: Subj - Subjective Patient reports: still having pain Narrative: Patient is an 89 year old male status post ground level fall resulting in right femoral neck fracture. Patient is status post-op day 1 after right hip hemiarthroplasty. Patient was visited on morning rounds. No reported overnight events. Patient did not appear in distress. Patient was working with PT upon arrival and tolerating therapy. When asked about pain, patient rated his pain 10 /10 in the right hip while on pain control with Tylenol 1000 mg PO ISRAEL and Tramadol 60 mg PO Q6H ISRAEL PRN. History of sacral pressure ulcer, which was evaluated at bedside. Patient was hemodynamically stable and appeared to have a positive disposition, despite pain. Surgery Progress Note: Obj - Vital signs Vital signs: Vital Signs - Most Recent Temp Pulse Resp BP Pulse Ox 97.3 F L 73 16 123/64 93 L 07/19/20 11:03 07/19/20 11:03 07/19/20 11:03 07/19/20 11:03 07/19/20 11:03 - Physical Exam General: no distress, severe pain (Patient reported 10/10 pain in right hip.) ENT: other (Moderate hearing loss) Cardiovascular: regular rate and rhythm Respiratory: normal expansion, normal respiratory effort Psychiatric: oriented to time, oriented to person, oriented to place, speech is normal Wound: healing well Additional exam: Sacral pressure ulcer evaluated at bedside. Surgery Progress Note: Results - Labs Result Diagrams: 07/19/20 04:51 07/19/20 04:51 Lab results: Laboratory Results - last 24 hr 07/19/20 07/19/20 04:51 04:51 WBC 7.8 RBC 4.52 L Hgb 13.0 L Hct 40.0 L MCV 88.6 MCH 28.8 MCHC 32.5 RDW 12.5 Plt Count 153 MPV 7.7 Sodium 136 Potassium 4.0 Chloride 106 Carbon Dioxide 21 L Anion Gap 13 BUN 17 Creatinine 0.93 Estimated GFR (MDRD) 77 Glucose 130 H Calcium 8.3 Phosphorus 2.6 Magnesium 2.0 Surgery Progress Note: A/P - Plan Plan: ASSESSMENT: 1. Status post ground level fall day 2 2. Status post-op right hip hemiarthroplasty day 1 3. Sacral decubitis ulcer 4. Benign prostatic hyperplasia 5. GERD PLAN: Continue with current diet regimen. Pain medication adjusted with Tylenol 1000 mg PO Q6H, Motrin 400 mg PO Q8H, and Tramadol 50 mg PO Q6H to ensure adequate pain control. Home medications including Furosemide, Tamsulosin, Protorix restarted. Wound care consulted for sacral wound. Encourage patient to continue working with PT. Dominguez catheter discontinued. Discuss with case management regarding acute rehab facility placement. Note recorded by SHERMAN Nazario-IVETTE, [facility].
[2020-07-19] MEDS ORDERED: Bisacodyl 10 MG SUPP PR SCH (23:15)
--- NOTE | 2020-07-19 23:45 | PRG ---
DATE OF SERVICE: SUBJECTIVE: Patient was seen this evening during rounds. He was resting comfortably in bed, asleep with no signs of acute distress. Nursing reported patient with Dominguez discontinued. He is not able to void since. We will continue to monitor with bladder scans and watch for his first void. OBJECTIVE: VITAL SIGNS: Temperature 98.1, pulse 78, respirations 16, oxygen saturation 98% on room air, and blood pressure 154/67. GENERAL: Well-appearing elderly male, lying in bed, resting comfortably and asleep with no signs of acute distress. PULMONARY: Equal chest rise and fall. No signs of acute respiratory distress. ASSESSMENT: 1. Status post ground level fall. 2. Right femoral neck fracture, status post repair. 3. Sacral decubitus ulcer, present on admission. 4. History of BPH and gastroesophageal reflux disease. PLAN: Continue current diet and pain regimen, suppository for bowel movement. To help with urinary retention, I and O cath as needed overnight. Patient is pending discharge to [facility] bed. He is ready for discharge at this time. Job ID: [id number]
[2020-07-20] MEDS: Ibuprofen 200 MG TAB PO SCH ×2 (02:16→10:02)
[2020-07-20] MEDS: Acetaminophen 500 MG TAB PO SCH ×3 (02:17→15:13)
[2020-07-20] MEDS: traMADol HCl 50 MG TAB PO SCH ×3 (02:18→15:13)
[2020-07-20 06:39] LABS: Hemoglobin 12.1 g/dL (14.0-18.0); Mean Corpuscular HGB CONC 32.9 g/dL (32.0-36.0); Mean Corpuscular Hemoglobin 28.7 pg (27.0-31.0); Mean Corpuscular Volume 87.1 fL (78.0-98.0); Mean Platelet Volume 8.1 fL (7.4-10.4); Platelet Count 154 thou/uL (130-400); RBC Distribution Width 12.5 % (11.5-14.5); Red Blood Cell (RBC) Count 4.23 mill/uL (4.70-6.10); White Blood Cell (WBC) Count 6.6 thou/uL (4.8-10.8)
[2020-07-20 07:02] LABS: Anion Gap 12 mmol/L (10-20); BUN (Urea Nitrogen) 19 mg/dL (8.4-25.7); Calc. Creatinine Clearance 62 mL/min (70-130); Calcium 8.1 mg/dL (7.8-10.44); Carbon Dioxide 23 mmol/L (23-31); Chloride 107 mmol/L (98-107); Estimated GFR-MDRD 86; Glucose 116 mg/dL (83-110); Magnesium 1.8 mg/dL (1.6-2.6); Phosphorus 2.2 mg/dL (2.3-4.7); Potassium 3.7 mmol/L (3.5-5.1); Sodium 138 mmol/L (136-145)
[2020-07-20] MEDS ORDERED: Magnesium Sulfate 2 GM in Sodium Chloride 0.9% 100 ML IVPB SCH (08:00)
[2020-07-20] MEDS ORDERED: Potassium Phosphate 30 MMOL, Magnesium Sulfate 2 GM in Sodium Chloride 0.9% 250 ML 250 ML IVPB SCH (08:00)
[2020-07-20] MEDS: Aspirin 81 mg Enteric Coated Tablet PO SCH (10:01)
[2020-07-20] MEDS: Furosemide 40 MG TAB PO SCH (10:01)
[2020-07-20] MEDS: Tamsulosin HCl 0.4 MG CAP PO SCH (10:01)
[2020-07-20] MEDS: Polyethylene Glycol 3350 17 GM Packet PO SCH (10:02)
--- NOTE | 2020-07-20 15:40 | DIS ---
DATE OF ADMISSION: 07/17/2020 DATE OF DISCHARGE: 07/20/2020 DISCHARGE ATTENDING: Dr. Clay. ADMITTING ATTENDING: Dr. Médnez. CONSULTS: Orthopedic Surgery, Dr. Ray. PROCEDURES: On 07/18/2020, right hip hemiarthroplasty. PRIMARY DIAGNOSES: 1. Ground level fall. 2. Right femoral neck fracture. 3. Sacral breakdown. SECONDARY DIAGNOSES: 1. Prostate enlargement. 2. Gastric-esophageal reflux disease. DISCHARGE MEDICATIONS: 1. Tramadol 50 mg p.o. q.6 hours p.r.n. pain, #30, no refills. 2. Tylenol 1000 mg p.o. q.6 hours. 3. Aspirin 81 mg p.o. b.i.d. for VTE prophylaxis for 30 days. 4. Flexeril 5 mg p.o. 3 times a day p.r.n. muscle spasms. 5. Lasix 40 mg p.o. daily for leg swelling. 6. Ibuprofen 400 mg p.o. q.8 hours p.r.n. pain. 7. Protonix 40 mg p.o. daily. 8. Flomax 0.4 mg p.o. daily. 9. MiraLAX 17 g p.o. daily for constipation. No discontinued medications. OPHTHALMOLOGY ASSISTANT reviewed and appropriate. HISTORY OF PRESENT ILLNESS AND HOSPITAL COURSE: This is an 89-year-old gentleman, who presented to the emergency room after a ground level fall at his home. The patient was helping his when he lost his balance, landing on his right side. The patient denies losing consciousness or hitting his head. The patient denied feeling weak or dizzy or having any chest pain or shortness of breath prior to falling. The patient states he lost his balance, which he has done before. The patient uses a cane to ambulate at home. The patient sustained a right femoral neck fracture, in which Trauma Services was asked to admit the patient for medical management. The patient's pain was well controlled pre- and postop. The patient has some urinary retention postop, in which he had to be in and out cath'd and then a Dominguez catheter was placed as the patient has a history of enlarged prostate. Electrolytes were replaced during his hospital stay. The patient was having bowel movements. On the day of discharge, the patient was examined by Dr. Clay. The patient had no complaints. The patient was sitting up in the chair, eating breakfast. The patient's vital signs were stable on the day of discharge and his exam was unremarkable including cardiopulmonary and GI exam. The patient was deemed stable for discharge to [facility] for continued physical and occupational therapy. DISPOSITION: Stable. DISCHARGE INSTRUCTIONS: 1. Location: [facility]. 2. Diet: Regular diet. 3. Activity: Weightbearing as tolerated. 4. Followup: Follow up with Dr. Ray in 14 days. No need to follow up with Trauma Services. Please call for any questions. It is recommended that the patient can keep his Dominguez catheter for approximately 2 days due to urinary retention and then start bladder trials. Job ID: [id number] MTDD
[2020-07-20 16:01] VITALS: BP 157/75; TEMP 97.6
--- NOTE | 2020-07-21 07:41 | PQF ---
CLINICAL DOCUMENTATION CLARIFICATION FORM: Dear : Sylvester Clay Date / Time: 07/21/2020 Please exercise your independent, professional judgment in responding to the clarification form. Clinical indicators are provided on the bottom of this form for your review Kindly clarify regarding stage of sacral pressure ulcer Please check appropriate box(es): [x ] Sacral pressure Ulcer: Stage (I to IV): _II [ ] Other diagnosis [ ] Unable to determine In addition, please specify: Present on Admission (POA): [ x ] Yes [ ] No [ ] Unable to determine To be completed by CDI/Coding staff for physician review: Present Clinical Indicators - Signs / Symptoms / Labs Results and Location in Medical Record [ x ] Sacral pressure ulcer evaluated at bedside. Wound care consulted for sacral wound. General surgery progress note 07/19 by Jeimy Fontaine [ x ] Sacral decubitus ulcer, present on admission Progress note 07/19 by Melissa Nolen [ x ] Discharge diagnoses: Sacral breakdown Discharge summary [ x ] Wound photo note 07/17 Notes Present Risk Factors Results and Location in Medical Record [ x ] Advanced age [age] years old H&P [ x ] Sustained ground fall with right femoral neck fracture Consult 07/17 by Clifford Méndez MD Present Treatments Results and Location in Medical Record [ x ] Wound care consult General surgery progress note 07/19 by Jeimy Fontaine [ x ] Evaluation of sacral ulcer done at bedside General surgery progress note by Jeimy Fontaine CDS/Research Kennel Supervisor Signature: [id number] Phone #: Date/ Time: 07/21/2020 PRESSURE ULCER STAGES Stage I: Erythema Stage II: Partial thickness Stage III: Full thickness Stage IV: Necrosis to muscle/bone This is a permanent part of the Medical Record [facility]
== END 2020-07-20 16:05 | disposition swing bed (61) | DRG 470 ==
LOC: ERS 10:04 → SURG A 14:27
PROVIDERS: ADMIT Surgery; ATTEND Surgery
PROC: 0SRR0J9 Replacement of Right Hip Joint, Femoral Surface with Synthetic Substitute, Cemented, Open Approach (ICD-10-PCS; principal; 2020-07-18)
PROC: 0T9B70Z Drainage of Bladder with Drainage Device, Via Natural or Artificial Opening (ICD-10-PCS; 2020-07-19)
DX: S72.031A Displaced midcervical fracture of right femur, initial encounter for closed fracture (principal); N40.0 Benign prostatic hyperplasia without lower urinary tract symptoms; K21.9 Gastro-esophageal reflux disease without esophagitis; I10 Essential (primary) hypertension; W18.30XA Fall on same level, unspecified, initial encounter; L89.152 Pressure ulcer of sacral region, stage 2; R33.9 Retention of urine, unspecified; Y92.009 Unspecified place in unspecified non-institutional (private) residence as the place of occurrence of the external cause; Z90.49 Acquired absence of other specified parts of digestive tract; Z98.890 Other specified postprocedural states
CPT/HCPCS: 36415; 51702; 70450; 71045; 72125; 72170; 80048; 80053; 83735; 84100; 85025; 85027; 86850; 86900; 86901; 87086; 93005; 99406; C1713; G0390; J0360; J0690; J1885; J2370; J2405; J2704; J3010; J3475; J3490; J7050; U0002

== ENCOUNTER 2020-09-11 17:12 | Emergency (ER) | payer MEDICARE, BC ==
--- NOTE | 2020-09-11 18:01 | RAD ---
2 views of the right hip: : 09/11/2020 COMPARISON: 08/10/2020 HISTORY: Hip pain FINDINGS: There is a total hip arthroplasty on the right which appears stable when compared to the pr ior examination. No displaced fracture or evidence of dislocation. No radiographic evidence of hardware failure. IMPRESSION: Stable right hip arthroplasty with no displaced fracture or dislocation seen.
== END 2020-09-11 18:40 | disposition home or self-care (01) ==
LOC: ERS 17:12
DX: M25.551 Pain in right hip (principal); K21.9 Gastro-esophageal reflux disease without esophagitis